=== PATIENT | male | born 1995 | race Caucasian/White ===

== ENCOUNTER 2024-03-08 10:46 | Emergency (ER) | payer OTHER, SELFPAY ==
--- NOTE | ~2024-03-08 | US_ITS ---
EXAMINATION: US scrotum doppler DATE: 03/08/2024 13:02 INDICATION: Right-sided testicular pain. TECHNIQUE: Grayscale and Doppler ultrasound images of the testes were obtained. COMPARISON: None. FINDINGS: The right testis measures 4.6 x 2.5 x 2.3 cm. The left testis measures 4.5 x 2.1 x 2.9 cm. There is normal vascular flow to both testes. The right epididymis is normal with normal vascular angélica w. The left epididymis is normal with normal vascular flow. There is no varicocele or hydrocele. IMPRESSION: 1. Normal testes. Reviewed, dictated and finalized at location A. IMPRESSION: 1. Normal testes.
[2024-03-08 11:01] VITALS: BP 138/96; PULSE 84; RESP 16; TEMP 36.6; O2SAT 99
--- NOTE | 2024-03-08 13:10 | ED.GENADULT ---
HPI - General Adult General Chief complaint: Urogenital-Male Stated complaint: right sided testicular pain Time Seen by Provider: 03/08/24 13:10 History of Present Illness HPI narrative: Patient is a 28-year-old male who presents to the emergency department this evening complaining of right testicular discomfort. Patient states that it does not hurt or is painful, stating that he just feels some slight discomfort. States that he has had similar symptoms in the past but it normally goes away but this time it did not. Patient is currently on hormone replacement therapy with estrogen transitioning from male to female. Denies any history of testicular torsion. Patient states that he noticed his right test in an abnormal lie earlier today. Denies any urinary symptoms, denies any concern for STDs and denies any abdominal pain, fevers or chills. Patient also denies any recent sexual activity. No additional symptoms or concerns at this time. Related Data Allergies Allergy/AdvReac Type Severity Reaction Status Date / Time No Known Allergies Allergy Verified 03/08/24 11:08 Review of Systems Review of Systems: All systems are reviewed and are negative unless stated otherwise in the HPI. Exam Narrative: General: Alert, awake, afebrile, in no acute distress. HEENT: PERRL, no rhinorrhea, no post nasal drip, oropharynx clear. Cardiovascular: Regular rate and rhythm, no murmurs, rubs or gallops, no peripheral edema. Respiratory: Clear to auscultation bilaterally, no tachypnea, no wheezing, no rhonchi, no rubs, no respiratory distress. Abdomen: Soft, nontender, nondistended, no rebound, no guarding, no peritoneal signs. Genital: Exam performed with presence of a female nurse manager activities Klaudia revealing normal external male genitalia, bilateral testes in normal vertical lie, intact bilateral, static reflux, no tenderness to palpation over the bilateral testes. Musculoskeletal: No joint swelling or deformity, normal muscle tone. Skin: No rashes or petechia, no signs of infection. Neurological: Alert and oriented to person, place, and time. Follows all commands. No focal deficits, speech is clear and fluent. Course Vital Signs Vital signs: Vital Signs Temperature 97.8 F 03/08/24 11:01 Pulse Rate 84 03/08/24 11:01 Respiratory Rate 16 03/08/24 11:01 Blood Pressure 138/96 H 03/08/24 11:01 Pulse Oximetry 99 03/08/24 11:01 Temperature 97.8 F 03/08/24 11:01 Pulse Rate 84 03/08/24 11:01 Respiratory Rate 16 03/08/24 11:01 Blood Pressure 138/96 H 03/08/24 11:01 Pulse Oximetry 99 03/08/24 11:01 Medical Decision Making MDM Narrative Medical decision making narrative: The patient was evaluated by myself in the emergency department. History is obtained from patient who is an independent historian and physical exam was performed. External medical records were reviewed at this time. Imaging studies obtained included testicular ultrasound which was independently interpreted by me revealing no acute process, intact blood flow to the bilateral testes, no hydrocele or varicocele, which is pending final radiology interpretation. Differential diagnosis considerations include testicular torsion, hydrocele, varicocele. Comorbidities impacting this visit include none. I have evaluated and discussed social determinants of health with the patient that could potentially impact subsequent diagnosis and treatment plans. On repeat assessment of the patient, reevaluation revealed that the patient is doing well and is in no acute distress. Patient symptoms have improved since he arrived to our emergency department. Repeat vital signs were all reviewed and noted to be stable. Differential diagnosis and treatment plan were discussed with the patient at bedside. Patient agrees with discussion and after shared medical decision making agrees with discharge. All questions were answered to the patient's satisfaction. Patient
== END 2024-03-08 13:37 | disposition home or self-care (01) ==
LOC: ANHED 13:26
PROVIDERS: Emergency Provider Emergency Medicine
DX: N50.811 Right testicular pain (principal); Z79.890 Hormone replacement therapy
CPT/HCPCS: 76870; 93976; 99284